=== PATIENT | male | born 1995 | race Caucasian/White ===

== ENCOUNTER 2024-03-24 22:16 | Emergency (ER) | payer BC, SELFPAY ==
[2024-03-24] VITALS (7 sets, daily range): BP systolic 91–103; BP diastolic 55–67; PULSE 87–94; RESP 16–28; TEMP 36.3; O2SAT 96–99
--- NOTE | ~2024-03-24 | CT_ITS ---
Clinical Indication: Chest pain, abdominal pain CT Scan of the Chest, Abdomen, and Pelvis with Contrast: Technique: Contiguous sections were acquired throughout the chest, abdomen, and pelvis after intraven ous administration of 100 cc of Omnipaque 350. Dose reduction technique was used on this scan by allyson clements automated exposure control and iterative reconstruction technique. The dose-length product (DL P) was 850.10 mGy-cm. Findings: There is no evidence of any significant mediastinal, hilar or axillary lymphadenopathy. The mediastin al soft tissues and vascular structures appear normal. There is no evidence of pleural or pericardial effusion. There is focal scarring or atelectasis at the right middle lobe and right lower lobe, as well as the left lung base. The liver, spleen, pancreas, gallbladder, adrenals and kidneys are within normal limits. No evidence of aortic aneurysm. No lymphadenopathy. There is mild diffuse large bowel wall thickening. No bowel obstruction. No abscess or free air. Urinary bladder is unremarkable. No pelvic mass seen. No ascites. Impression: Pancolitis. Consider ulcerative colitis or other infectious/inflammatory colitis. Focal bibasilar pulmonary scarring or atelectasis. Reviewed, dictated and finalized at [facility]. Impression: Pancolitis. Consider ulcerative colitis or other infectious/inflammatory coliti s. Focal bibasilar pulmonary scarring or atelectasis.
--- NOTE | ~2024-03-24 | XR_ITS ---
Portable chest x-ray Comparison: None Clinical History: Chest pain Findings: Lungs are clear, without focal consolidation or pleural effusion. Cardiomediastinal silho uette is unremarkable. Bones and soft tissues are unremarkable. Impression: Normal chest. Reviewed, dictated and finalized at location . Impression: Normal chest.
--- NOTE | 2024-03-24 22:31 | ECG_ITS ---
Test Date: 2024-03-24 22:32:41 Measurements Intervals [place] Rate: 86 P: 48 RI: 164 QRS: 80 QRSD: 106 T: 26 QT: 348 QTc: 418 Interpretive Statements SINUS RHYTHM NORMAL ELECTROCARDIOGRAM No previous ECG available for comparison Electronically Signed On 03-25-2024 09:13:11 CDT by Abel Reynolds M.D.
--- NOTE | 2024-03-24 23:01 | ED.ABDPAIN ---
HPI - Abdominal Pain General Chief Complaint: Abdominal Pain Stated Complaint: abd pain Source: patient Mode of arrival: ambulatory Limitations: no limitations History of Present Illness HPI narrative: 29-year-old male with no significant past medical history presents to the ED with -- epigastric/ upper abdominal pain with fever and diarrhea which started on Tuesday and lasted for a day with improvement in symptoms. He had of recurrence of upper abdominal pain and diarrhea . -- new substernal pain which started today. no fever or chills. No cough or sputum production. No shortness of breath. -- dizziness Patient has not eaten anything out of the ordinary. Nonsmoker. Occasional alcohol use. MD elicited complaint: abdominal pain Onset (ago): day(s) ( Four days) Pain Consistency: intermittent Location: epigastric Pain scale (0-10): 6 Quality: aching Radiation: none Migration to: no migration Exacerbating factors: nothing Relieving factors: nothing Associated symptoms: diarrhea Related Data Home Medications Medication Instructions Recorded Confirmed No Home Medications 03/24/24 03/24/24 Allergies Allergy/AdvReac Type Severity Reaction Status Date / Time No Known Allergies Allergy Verified 03/24/24 22:18 Review of Systems Review of Systems: All systems reviewed & are unremarkable except as noted in HPI and below Constitutional: Constitutional: Reports as per HPI and Reports no additional constitutional complaints Eyes: Eyes: Reports as per HPI and Reports no additional eye complaints ENT: Reports system reviewed and no additional complaints, except as documented and Reports as per HPI Cardiovascular: Cardiovascular: Reports as per HPI, Reports no additional cardiovascular complaints and Reports chest pain Comments: substernal chest pain Respiratory: Respiratory: Reports as per HPI and Reports no additional respiratory complaints Gastrointestinal: Gastrointestinal: Reports as per HPI, Reports no additional gastrointestinal complaints and Reports diarrhea Genitourinary: Genitourinary: Reports no additional male genitourinary complaints Musculoskeletal: Musculoskeletal: Reports no additional musculoskeletal complaints and Reports as per HPI Integumentary/Breasts: Skin/Breast: Reports system reviewed and no additional complaints, except as docu and Reports as per HPI Neurologic: Reports system reviewed and no additional complaints, except as documented and Reports as per HPI Psychiatric: Psychiatric: Reports no additional psychiatric complaints and Reports as per HPI Endocrine: Endocrine: Reports no additional endocrine complaints and Reports as per HPI Hematologic/Lymphatic: Hematologic/Lymphatic: Reports no additional hematologic/lymphatic complaints and Reports as per HPI Allergic/Immunologic: Allergic/Immunologic: Reports no additional allergic/immunologic complaints and Reports as per HPI Exam Narrative: blood pressure 103/59. Afebrile. Const: General: no acute distress Orientation/consciousness: patient oriented x3 Limitations: no limitations HENMT: Head: normal to inspection Ears: external ears normal Face/Nose/Sinus: Normal external nose present Face and sinus: normal facial exam Mouth: Yes Normal oral and palatal mucosa present Throat: posterior oropharynx normal Eyes: Conjunctivae: conjunctivae normal Pupils: Equal, round and reactive pupils present EOM: EOMs intact bilaterally Direct Ophthalmoscopy: no photophobia Neck: Neck: normal visual inspection, no lymphadenopathy and no meningeal signs Chest: Chest palpation & inspection: normal inspection of the chest Resp: Effort & Inspection: normal respiratory effort Auscultation: clear to auscultation bilaterally Cardio: Rate: regular rate Rhythm: regular rhythm GI: GI Palp: Yes Soft to palpation Other: Tenderness in right lower quadrant and left lower quadrant. : General: Yes no CVA tendernes
--- NOTE | 2024-03-24 23:03 | PC.NURSE ---
patient is resting on stretcher. call light in reach.
--- NOTE | 2024-03-24 23:10 | PC.NURSE ---
Dr Hutchinson at the bedside
[2024-03-24] MEDS: ONDANSETRON INJ 4 MG/2 ML VIAL IV PUSH (23:22)
[2024-03-24] MEDS: LACTATED RINGERS 1,000 ML 999 ML IV CONT (23:22)
[2024-03-24 23:29] LABS: Basophils Absolute Auto 0.02 K/mm3 (0.00-0.10); Basophils Percent Auto 0.4 % (0.0-1.0); Eosinophils Absolute Auto 0.04 K/mm3 (0.02-0.50); Eosinophils Percent Auto 0.7 % (1.0-6.0); Hematocrit 38.8 % (40.0-54.0); Hemoglobin 13.8 g/dL (14.0-18.0); Immature Granulocyte Absolute 0.01 K/mm3 (0.00-0.00); Immature Granulocyte Percent A 0.2 % (0.0-0.0); Lymphocytes Percent Auto 18.3 % (18.0-42.0); Mean Corpuscular HGB Conc 35.6 g/dL (32-36); Mean Corpuscular Hemoglobin 31.2 pg (27.0-31.0); Mean Corpuscular Volume 87.6 fL (78.0-102.0); Mean Platelet Volume 10.8 fl (8.7-11.0); Monocytes Percent Auto 14.7 % (2.0-11.0); Neutrophils Absolute Auto 3.58 K/mm3 (1.70-7.20); Neutrophils Percent Auto 65.7 % (50.0-70.0); Platelet Count Result 220 K/mm3 (150-420); Red Blood Count 4.43 M/mm3 (4.70-6.10); Red Cell Distribution Width 12.4 % (11.6-14.4); White Blood Count 5.5 K/mm3 (4.8-10.8)
[2024-03-24 23:40] LABS: Partial Thromboplastin Time 31.5 Sec (23.9-30.70)
[2024-03-24 23:41] LABS: Lactic Acid Reflex 0.8 mmol/L (0.4-2.0)
[2024-03-24 23:42] LABS: Alanine Aminotransferase 23 U/L (16-63); Albumin Level 3.4 g/dL (3.4-5.0); Alkaline Phosphatase 88 U/L (46-116); Anion Gap 9 mmol/L (4-12); Aspartate Amino Transferase 19 U/L (15-37); Bilirubin,Total 0.4 mg/dL (0.00-1.00); Blood Urea Nitrogen 14 mg/dL (7-18); Calcium 8.6 mg/dL (8.5-10.1); Carbon Dioxide 28 mmol/L (21-32); Chloride 100 mmol/L (98-108); Estimated CRCL calculation 78 ml/min; Estimated Glomerular Filt Rate > 60; Glucose 106 mg/dL (70-99); Lipase 16 U/L (16-77); Osmolality Calculated 284 mOsm/kg (285-295); Potassium 3.3 mmol/L (3.5-5.1); Sodium 137 mmol/L (136-145); Total Protein 7.3 g/dL (6.4-8.2)
[2024-03-24 23:50] LABS: Troponin I 1659.1 ng/L (0.00-60.4)
[2024-03-25] VITALS (24 sets, daily range): BP systolic 87–106; BP diastolic 56–77; PULSE 68–90; RESP 17–23; O2SAT 95–99
[2024-03-25 00:07] LABS: Add Urine Microscopic? NO; Appearance Urine Clear (Clear); Bilirubin Urine Negative (Negative); Blood Urine Negative (Negative); Color Urine Yellow (Yellow); Glucose Urine UA Negative (Negative); Ketones Urine Negative (Negative); Leukocyte Esterase Ur Negative LEU/UL (Negative); Nitrate Urine Negative (Negative); Protein Urine Negative (Negative); Specific Grav Ur >= 1.030 (1.010-1.020); Urobilinogen Urine 0.2 mg/dL (0.2-1.0)
--- NOTE | 2024-03-25 00:09 | PC.NURSE ---
RN advised me to call who is sitting in parking lot, has 3 kids and assured her it was okay for them to come in
[2024-03-25] MEDS: HEPARIN SOD/D5W 100 UNITS/ML 25,000 UNITS/250 ML BAG 10 UNITS IV CONT (00:11)
[2024-03-25] MEDS: HEPARIN SODIUM 5,000 UNITS/ML VIAL 4000 UNITS IV PUSH (00:13)
[2024-03-25] MEDS: ASPIRIN 81 MG CHEWABLE TABLET 324 MG PO (00:14)
--- NOTE | 2024-03-25 00:18 | PC.NURSE ---
proc tech called about confusion over PT/INR that was ordered for 23:53, checked w/ Jasper, said it was a mistake order & he just wants a redrawn trop once pt gets back from ct scan
--- NOTE | 2024-03-25 00:30 | PC.NURSE ---
patient transported to ct via wheel chair. dr jean baptiste talking with m transfer line
--- NOTE | 2024-03-25 00:45 | ECG_ITS ---
Test Date: 2024-03-25 00:55:58 Measurements Intervals [place] Rate: 84 P: 50 GA: 173 QRS: 81 QRSD: 105 T: 33 QT: 349 QTc: 415 Interpretive Statements SINUS RHYTHM NORMAL ELECTROCARDIOGRAM Compared to ECG 03/24/2024 22:32:41 No significant changes Electronically Signed On 03-25-2024 09:14:34 CDT by Abel Reynolds M.D.
[2024-03-25] MEDS: LACTATED RINGERS 1,000 ML 999 ML IV CONT (01:06)
[2024-03-25] MEDS: PIPERACILLN/TAZ 3.375GM/NS50ML 3.375 GM/50 ML BAG IVPB (01:40)
--- NOTE | 2024-03-25 01:57 | PC.NURSE ---
called [facility] for RN for transfer of pt
[2024-03-25] MEDS: MORPHINE SULFATE (*CRX) 2 MG/ML INJ 1 MG IV PUSH (02:06)
--- NOTE | 2024-03-25 03:01 | PC.NURSE ---
called [facility] access line for RN, spoke to Lisa, said waitlist for [facility] but calling house sup at [facility]
--- NOTE | 2024-03-25 03:34 | PC.NURSE ---
patient got up to use bedside commode. reports that he does not want the pain medication at this time. patient back on stretcher with call light in reach. warm blanket was given
[2024-03-25] MEDS: SODIUM CHLORIDE 0.9% IV 1,000 ML 999 ML IV CONT (04:10)
--- NOTE | 2024-03-25 04:28 | PC.NURSE ---
report called to Marija RONQUILLO at [facility]
--- NOTE | 2024-03-25 05:04 | PC.NURSE ---
[facility] called told them pt is being transported to [place]
== END 2024-03-25 05:11 | disposition short-term general hospital (02) ==
PROVIDERS: Emergency Provider Internal Medicine Critical Care Medicine
DX: I21.4 Non-ST elevation (NSTEMI) myocardial infarction (principal); K52.9 Noninfective gastroenteritis and colitis, unspecified
CPT/HCPCS: 36415; 71045; 71260; 74177; 80053; 81003; 83605; 83690; 84484; 85025; 85730; 93005; 96361; 96365; 96366; 96367; 96375; 99285; A9270; J1644; J2270; J2405; J2543; J7030; J7120; Q9967

== ENCOUNTER 2024-03-25 05:44 | Inpatient (IN) | payer BC, SELFPAY ==
[2024-03-25] VITALS (13 sets, daily range): BP systolic 83–104; BP diastolic 56–71; PULSE 57–88; RESP 12–29; TEMP 36.7–37.2; O2SAT 93–100; BMI 28.0
--- NOTE | 2024-03-25 06:06 | PM.IMHP ---
H&P: HPI History of Present Illness Date/Time: 03/25/24 06:06 Chief Complaint: Chest pain Narrative: 29-year-old male from [place] with past medical history of diet-controlled hyperlipidemia and being overweight who presented to the ER at [facility] due to chest pain. Patient reports his symptoms actually started on the . He developed abdominal cramping and watery stools several times a day. He had some associated cramping with his diarrheal episodes and some periumbilical and lower abdominal pain. He had to leave work due to feeling ill. The next day felt slightly better but after returning home that day the pain worsened. On he developed a fever up to 101. He had increased number of bowel movements. He denied any mucousy stools, bloody stools or melena. He felt on Tuesday after taking Imodium the day before. So they proceeded with her trip down here to our area for a moravian. However when they arrived to the hotel he began having a increased abdominal cramping. His abdominal pain was an 8/10 in intensity. Shortly thereafter he developed sudden substernal chest pain with associated pressure in his throat Achilles neck was tight. He did not have any associated nausea or vomiting. He had not had any heartburn symptoms prior to this. He denied any difficulty swallowing. The chest pain started around 930 or 10:00 o'clock and persisted until he route arrived at the outside ER around 10:30 or 11. He received full-dose aspirin at the outside ER He denies any known history of heart disease but was diagnosed with hyperlipidemia last year that improved with weight loss. He has intentionally lost 20 lb this year. He does have a significant family history of premature coronary disease in both his father and grandfather who both in their 50s but they were both smokers. His troponins does have side ER were found to be elevated 1659 and 3659. His initial EKG did demonstrate nonspecific changes in lead 3 and T-wave inversions in V1. Repeat EKG demonstrated resolution of changes in lead 3 and improvement in changes in V1. He reports that his chest pain was improved after receiving 1 mg of morphine. However his pain did return. Nitroglycerin was ordered but patient did not receive it due to hypotension. When patient had arrived to the outside facility initially his blood pressures were normal but he did develop hypotension after midnight. His blood pressures for the most part at that time remained in the 80s. He did receive 2 L of IV fluids. CT scan of the abdomen did demonstrate colitis. Patient received 1 dose of Zosyn. Given his significant elevation in troponin he was started on the heparin drip. Transfer was arranged to our facility. I requested patient receive 1/3 L of IV fluids which he received prior to arriving at our facility. His blood pressures were still slightly low but systolic pressures were greater than 90 and maps were in the 65-70 range. She does evaluation was performed which demonstrated patient was fluid responsive with a 30% differential. An additional 4 L fluid was ordered. Patient reports persistent abdominal pain. He still reports some substernal chest pressure. His pain is not per reproducible. His repeat troponin on arrival to our facility was 7.2. He denies any upper respiratory symptoms, cough, congestion. He does report that his middle of his chest feels as if he may have strained some muscles but he does not have any reproducible pain to palpation. He denies any increased chest discomfort with respiratory motion The patient is did go camping but 8 weeks ago in [place]. The patient's also reports that they raised her own chickens for consumption. They recently slot heard some other check ins for the season. She is concerned that the diarrhea may be due to contamination. No one else on the strip has become ill. He denies any history of antibiotic use. Review of Systems Re
--- NOTE | 2024-03-25 06:13 | ADMGEN ---
This patient, Bud Morales, was admitted to Intensive Care Unit-1. Patient/family oriented to hospital policies and general routines including ID bracelet, bed and alarms, visiting hours, pain management, procedures, bathroom and other care routines, personal items, smoking policy, room service/diet, and visiting hours. Information on how to activate the Rapid Response Team has been discussed. Patient/Family are encouraged to report perceived risks to care and to ask questions if they do not understand what they are told or what they should do.
[2024-03-25] MEDS: HEPARIN SOD/D5W 100 UNITS/ML 25,000 UNITS/250 ML BAG 10 UNITS IV CONT (06:20)
[2024-03-25 06:32] LABS: Alanine Aminotransferase 25 U/L (6-50); Albumin Level 4.1 g/dL (3.5-5.1); Alkaline Phosphatase 89 U/L (38-126); Anion Gap 10 mmol/L (4-12); Aspartate Amino Transferase 37 U/L (17-59); Bilirubin,Total 0.6 mg/dL (0.2-1.3); Blood Urea Nitrogen 11 mg/dL (9-20); Calcium 8.6 mg/dL (8.4-10.2); Carbon Dioxide 24 mmol/L (22-30); Chloride 103 mmol/L (98-107); Cholesterol 166 mg/dL (0-200); Estimated CRCL calculation 89 ml/min; Estimated Glomerular Filt Rate > 60; Glucose 98 mg/dL (65-110); HDL Direct 35 mg/dL; Potassium 3.6 mmol/L (3.4-5.0); Sodium 137 mmol/L (137-145); Triglycerides 165 mg/dL (<150)
[2024-03-25 06:34] LABS: Prothrombin Time 13.6 Seconds (11.1-14.7)
[2024-03-25 06:35] LABS: Partial Thromboplastin Time 39.1 Seconds (22.3-36.8)
[2024-03-25 06:36] LABS: Basophils Percent Auto 0.8 % (0.2-1.2); Eosinophils Percent Auto 0.8 % (0-4.4); Hematocrit 39.6 % (42.0-52.0); Hemoglobin 13.3 g/dL (14.0-18.0); Immature Granulocyte Absolute 0.02 K/mm3 (0.00-0.031); Immature Granulocyte Percent A 0.4 % (0-0.5); Lymphocytes Percent Auto 18.9 % (18.3-44.2); Mean Corpuscular HGB Conc 33.6 g/dl (32-36); Mean Corpuscular Hemoglobin 30.8 pg (26-34); Mean Corpuscular Volume 91.7 fl (80-100); Mean Platelet Volume 10.5 fl (7.4-10.4); Monocytes Absolute Auto 0.9 K/mm3 (0.1-0.6); Monocytes Percent Auto 17.2 % (2.6-8.5); Neutrophils Absolute Auto 3.3 K/mm3 (1.3-6.7); Neutrophils Percent Auto 61.9 % (45.5-73.1); Platelet Count Result 178 k/mm3 (150-375); Red Blood Count 4.32 M/mm3 (4.6-6.20); Red Cell Distribution Width 12.6 % (11.5-14.5); White Blood Count 5.3 K/mm3 (4.5-10.0)
--- NOTE | 2024-03-25 06:40 | ECG_ITS ---
Test Date: 2024-03-25 06:55:05 Measurements Intervals [place] Rate: 85 P: 47 LA: 161 QRS: 78 QRSD: 104 T: 25 QT: 332 QTc: 395 Interpretive Statements SINUS RHYTHM NORMAL ELECTROCARDIOGRAM INTERPRETATION BASED ON A DEFAULT AGE OF 40 YEARS Compared to ECG 03/25/2024 00:55:58 No significant changes Electronically Signed On 03-25-2024 09:07:03 CDT by Abel Reynolds M.D.
[2024-03-25 06:43] LABS: LDL Cholesterol Direct 91 mg/dL
[2024-03-25] MEDS: HEPARIN SODIUM 5,000 UNITS/ML VIAL 4000 UNITS IV PUSH (06:44)
[2024-03-25] MEDS: SODIUM CHLORIDE 0.9% IV 1,000 ML 999 ML IV CONT ×2 (06:51→16:49)
[2024-03-25] MEDS: KCL 20 MEQ/D5/0.45% SOD CHL 1,000 ML 100 ML IV CONT (06:52)
[2024-03-25] MEDS: ASPIRIN 81 MG CHEWABLE TABLET PO (09:14)
[2024-03-25] MEDS: ATORVASTATIN 40 MG TABLET PO (09:14)
[2024-03-25] MEDS: PIPERACILLN/TAZ 3.375GM/NS50ML 3.375 GM/50 ML BAG IVPB ×3 (09:20→20:34)
--- NOTE | 2024-03-25 10:14 | PM.CNCAR ---
Assessment and Plan Assessment and plan (1) Pancolitis: Code(s): K51.00 - Ulcerative (chronic) pancolitis without complications Status: Acute (2) Troponin I above reference range: Code(s): R79.89 - Other specified abnormal findings of blood chemistry Status: Acute Plan This is a 29-year-old man who presents with primarily what sounds like a viral gastroenteritis he had a fever and some diarrhea for 7-10 days before coming into the hospital. He now is having episodes of some chest pain as well as the abdominal discomfort and his troponin levels are significantly elevated. His electrocardiograms are completely unremarkable and other than the family history he has no significant risk factors for premature coronary artery disease. Having said this ACS is certainly in the differential diagnosis. At this point my recommendation is to proceed with left heart catheterization. Has his hemodynamics, vital signs are stable he is not really in any significant pain any longer and this is not an emergency and can be scheduled for a tomorrow morning. Assuming that his angiograms are normal the more likely diagnosis is viral myocarditis is part of the entire illness that he is experiencing at this time. Thank you for asking me to see this nice gentleman in consultation Abel Reynolds MD [facility] History of Present Illness History of Present Illness Consult date/time: 03/25/24 10:14 Reason For Visit: nstemi,colitis Narrative: This is a very pleasant 29-year-old man I am seeing at the request of the hospitalist because of chest pain and elevated troponin levels. He is unknown to doctors in this area as he lives in [place] and is visiting this area for a family event. He became unwell about 10 days before this admission with an illness marked by abdominal discomfort fever and diarrhea. At times with the abdominal discomfort he had also would have some pain radiating up into the chest he was feeling unwell in this regard yesterday and went to the emergency room [facility] where he was evaluated. Cardiac moctezuma his electrocardiograms are completely normal. His troponin levels however were significantly elevated and are downtrending. As a result of this he was placed on a heparin drip and transferred [facility] for further evaluation. The patient prior to this illness has no cardiac symptoms such as exertional chest pain shortness of breath palpitations orthopnea PND or edema. He has no other significant medical problems. 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 He does not smoke he does have a family history of premature coronary disease in his father and his maternal grandfather. He says the both of those gentleman where heavy cigarette smokers. Review of Systems Constitutional: Constitutional: Reports no additional constitutional complaints Eyes: Eyes: Reports no additional eye complaints ENT: Reports system reviewed and no additional complaints, except as documented Cardiovascular: Cardiovascular: Reports as per HPI Respiratory: Respiratory: Reports no additional respiratory complaints Gastrointestinal: Gastrointestinal: Reports as per HPI Genitourinary: Genitourinary: Reports no additional male genitourinary complaints Musculoskeletal: Musculoskeletal: Reports no additional musculoskeletal complaints Integumentary/Breasts: Skin/Breast: Reports system reviewed and no additional complaints, except as docu Neurologic: Reports system reviewed and no additional complaints, except as documented Endocrine: Endocrine: Reports no additional endocrine complaints Hematologic/Lymphatic: Hematologic/Lymphatic: Reports no additional hematologic/lymphatic complaints Allergic/Immunologic: Allergic/Immunologic: Reports no additional allergic/immunologic complaints [facility] Past Medical History Medical History (Updated 03/25/24 @ 11:02 by Abel Paniagua
[2024-03-25 11:17] LABS: IFOB Positive Control Positive; Immunochemical Fecal Occult Bl Positive (N)
[2024-03-25 11:36] LABS: Influenza A QL RT-PCR Negative (Negative); Influenza B QL RT-PCR Negative (Negative); RSV RNA, RT-PCR Negative (Negative); SARS-CoV-2 RNA PCR Negative (Negative)
--- NOTE | 2024-03-25 11:36 | PM.IMPN ---
Progress Note: A&P Assessment and Plan (1) Non-ST elevated myocardial infarction (non-STEMI): Code(s): I21.4 - Non-ST elevation (NSTEMI) myocardial infarction Status: Acute Assessment and Plan: Patient developed chest pain and has risk factors for early coronary disease with HLD and family hx. Troponin elevated to 7.22. EKG essentially normal with no change on repeat EKGs. Consider ACS without EKG changes or possibly myocarditis from viral infection. Pericarditis less likely by EKG but does have mild positional chest symptoms. There may be a component of demand ischemia given the patient's HoTN Heparin drip started. Cardiology was consulted with plans for LHC in the morning. Echo ordered. Patient received a full-dose aspirin at the outside hospital and will continue 81 mg aspirin here. Lipid panel noted. Add Lipitor. (2) Pancolitis: Code(s): K51.00 - Ulcerative (chronic) pancolitis without complications Status: Acute Assessment and Plan: The patient with diarrhea. CT scan showing pancolitis. Possibly acute onset infectious colitis but was having mild intermittent bowel symptoms. No hx of hematochezia. CDiff toxin negative. Stool studies sent. WBC normal. He was started on empiric antibiotic therapy with Zosyn. Monitor stool output. Guaiac positive stools but not unexpected given the colitis. Continue Heparin drip for now and follow HH. (3) Hypotension due to hypovolemia: Code(s): E86.1 - Hypovolemia Status: Acute Assessment and Plan: The patient's cheetah score did demonstrate fluid responsive state with persistent borderline hypotension. Hypotension likely due to hypovolemia/dehydration. He has received fluid boluses and currently on Maintenance fluids He had mild hypokalemia at the outside facility but this is already resolved. Stop maintenance fluids and change to NS after NS bolus for SBP 80's Will monitor BP closely (4) Hyperlipidemia: Code(s): E78.5 - Hyperlipidemia, unspecified Status: Acute Assessment and Plan: Hx of diet controlled HLD TC 166, TG 165, LDL 91 and HDL 35 Lipitor added Plan DVT prophylaxis - heparin Code status - full Subjective Date/time seen: 03/25/24 11:36 Interval history: 29yo male with untreated HLD here for chest pain, fever and diarrhea. No recent abx. No furthre chest pain but mils 'ache' in the chest. Has HLD and family hx of early CAD (MGF and father both at age 55 of [place]). No mouth lesions. No rashes. Never had a colonoscopy. Has been having bowel symptoms with occasional diarrhea off/on for the past few months. Slight abd pain now. Still having watery stools that are 'rust' colored which is new. No melana or hematochezia past few months. Exam Narrative: AF 98.9 97/66 81 22 99% ra Gen - NARD Chest - CTA bilaterally, nml RR CV - RRR S1/S2. Tele showing no significant dysrhythmias Abd - Soft, minimal tenderness lower midline area. No guarding. +BS. Ext - No pedal edema. 2+ DP bilaterally Neuro - Alert and oriented. Nonfocal exam. Psych - Nml mood and affect Skin - Warm and dry Objective Data Vital Signs Vital Signs: Vital Signs - 24 hr 03/25/24 06:26 03/25/24 06:01 03/25/24 06:13 Temperature 98.7 F Pulse Rate 87 88 Respiratory Rate 19 24 H Blood Pressure 101/68 104/71 Pulse Oximetry 97 100 Oxygen Delivery Room Air 03/25/24 06:15 03/25/24 06:31 03/25/24 08:00 Temperature Pulse Rate 87 87 Respiratory Rate 17 29 H Blood Pressure 102/70 96/70 L Pulse Oximetry 99 98 98 Oxygen Delivery Room Air 03/25/24 08:00 03/25/24 08:00 03/25/24 10:00 Temperature 98.9 F Pulse Rate 79 80 81 Respiratory Rate 22 H Blood Pressure 97/66 L Pulse Oximetry 99 Oxygen Delivery Intake/Output Intake/Output: Intake & Output 03/22/24 03/23/24 03/24/24 03/25/24 23:59 23:59 23:59 23:59 Intake Total 114 Output Total 70
[2024-03-25 11:51] LABS: Toxigenic C. Diff NEGATIVE (NEGATIVE)
[2024-03-25 12:29] LABS: Hematocrit 34.3 % (42.0-52.0); Hemoglobin 11.5 g/dL (14.0-18.0)
[2024-03-25] MEDS: SODIUM CHLORIDE 0.9% IV 1,000 ML 125 ML IV CONT ×2 (12:29→20:35)
[2024-03-25] MEDS: SODIUM CHLORIDE 0.9% IV 500 ML IV CONT (12:29)
[2024-03-25] MEDS: HEPARIN SOD/D5W 100 UNITS/ML 25,000 UNITS/250 ML BAG 13 UNITS IV CONT (16:50)
[2024-03-25 18:35] LABS: Hematocrit 37.3 % (42.0-52.0); Hemoglobin 11.8 g/dL (14.0-18.0)
[2024-03-25 18:43] LABS: Partial Thromboplastin Time 70.1 Seconds (22.3-36.8)
[2024-03-26] VITALS (17 sets, daily range): BP systolic 98–115; BP diastolic 62–89; PULSE 48–88; RESP 12–26; TEMP 36.2–36.9; O2SAT 92–98
--- NOTE | 2024-03-26 | ECHO_ITS ---
Patient Info Name: Bud Morales Age: 29 years : 1995 Gender: Male Ht: 70 in Wt: 195 lbs BSA: 2.11 m2 HR: 57 bpm BP: 110 / 62 mmHg Heart Rhythm: Sinus Rhythm Technical Quality: Good Exam Date: 03/26/2024 8:01 AM Exam Location: Echo Lab Patient Status: Inpatient Admit Date: 03/25/2024 Staff Ordering Physician: Karla Saenz DO Supervisor [employer]: Alisa Gan RDCS Attending Provider: Karla Saenz DO Referring Physician: Letty MORTON; Exam Type: CA echo doppler color flow Study Info Indications - elevated troponin, hypotension Complete two-dimensional, color flow and Doppler transthoracic echocardiogram is performed. Summary 1. Complete two-dimensional, color flow and Doppler transthoracic echocardiogram is performed. Left Ventricular Outflow Tract Name Value Normal LVOT 2D LVOT Diameter 2.0 cm LVOT Doppler LVOT Peak Gradient 2 mmHg LVOT Mean Gradient 1 mmHg LVOT VTI 15 cm LVOT VTI/AV VTI Ratio 0.7 LVOT Stroke Volume 51 ml LVOT CO 2.4 l/min LVOT CI 1.1 l/min/m2 Pulmonic Valve Name Value Normal RVOT Doppler RVOT Peak Gradient 2 mmHg PV Doppler PV Peak Gradient 4 mmHg Mitral Valve Name Value Normal MV Doppler MV Decel Wright 145 cm/s2 MV PHT 130 ms MV Area (PHT) 1.7 cm2 4.0-5.0 MV Diastolic Function MV E Peak Velocity 65 cm/s MV A Peak Velocity 34 cm/s MV E/A 1.9 MV Decel Time 450 ms MV Annular TDI MV E/e' (Septal) 4.7 <=8.0 MV E/e' (Lateral) 4.2 <=8.0 MV E/e' (Average) 4.4 Tricuspid Valve Name Value Normal TV Regurgitation Doppler TR Peak Velocity 252 cm/s TR Peak Gradient 25 mmHg Estimated PAP/RSVP
[2024-03-26 01:03] LABS: Hematocrit 29.7 % (42.0-52.0); Hemoglobin 9.9 g/dL (14.0-18.0)
[2024-03-26] MEDS: PIPERACILLN/TAZ 3.375GM/NS50ML 3.375 GM/50 ML BAG IVPB (02:56)
[2024-03-26 06:49] LABS: Basophils Percent Auto 0.3 % (0.2-1.2); Eosinophils Absolute Auto 0.1 K/mm3 (0-0.3); Eosinophils Percent Auto 1.4 % (0-4.4); Hematocrit 32.9 % (42.0-52.0); Immature Granulocyte Absolute 0.01 K/mm3 (0.00-0.031); Immature Granulocyte Percent A 0.3 % (0-0.5); Lymphocytes Absolute Auto 1.26 K/mm3 (0.9-3.2); Lymphocytes Percent Auto 34.2 % (18.3-44.2); Mean Corpuscular HGB Conc 33.4 g/dl (32-36); Mean Corpuscular Hemoglobin 30.4 pg (26-34); Mean Corpuscular Volume 90.9 fl (80-100); Mean Platelet Volume 10.4 fl (7.4-10.4); Monocytes Absolute Auto 0.6 K/mm3 (0.1-0.6); Monocytes Percent Auto 15.5 % (2.6-8.5); Neutrophils Absolute Auto 1.8 K/mm3 (1.3-6.7); Neutrophils Percent Auto 48.3 % (45.5-73.1); Platelet Count Result 162 k/mm3 (150-375); Red Blood Count 3.62 M/mm3 (4.6-6.20); Red Cell Distribution Width 12.9 % (11.5-14.5); White Blood Count 3.7 K/mm3 (4.5-10.0)
[2024-03-26 06:59] LABS: Alanine Aminotransferase 52 U/L (6-50); Albumin Level 3.2 g/dL (3.5-5.1); Alkaline Phosphatase 80 U/L (38-126); Anion Gap 8 mmol/L (4-12); Aspartate Amino Transferase 42 U/L (17-59); Bilirubin,Total 0.4 mg/dL (0.2-1.3); Blood Urea Nitrogen 5 mg/dL (9-20); Calcium 8.2 mg/dL (8.4-10.2); Carbon Dioxide 22 mmol/L (22-30); Chloride 110 mmol/L (98-107); Estimated CRCL calculation 89 ml/min; Estimated Glomerular Filt Rate > 60; Glucose 110 mg/dL (65-110); Potassium 3.4 mmol/L (3.4-5.0); Sodium 140 mmol/L (137-145)
[2024-03-26 07:02] LABS: Partial Thromboplastin Time 84.6 Seconds (22.3-36.8)
[2024-03-26] MEDS: SODIUM CHLORIDE 0.9% IV 1,000 ML 125 ML IV CONT ×2 (07:28→11:33)
[2024-03-26] MEDS: ASPIRIN 81 MG CHEWABLE TABLET PO (08:30)
--- NOTE | 2024-03-26 09:03 | PC.NURSE ---
Patient left for labor standards director.
--- NOTE | 2024-03-26 09:05 | WPDMODSED ---
Moderate Sedation Note-Pt Data Patient Data Diagnosis: Abdominal discomfort, diarrhea, chest pain, elevated troponin Present Complaint: no complaints this morning Procedure to be performed/Plan: left heart catheterization Allergies Allergy/AdvReac Type Severity Reaction Status Date / Time No Known Allergies Allergy Verified 03/24/24 22:18 Home Medications Medication Instructions Recorded Confirmed Type No Home Medications 03/24/24 03/25/24 History Current Medications: Active Medications Acetaminophen (Acetaminophen 325 Mg Tablet) 650 mg PO Q4H PRN PRN Reason: Mild Pain (1-3) or Fever Hydrocodone Bitart/Acetaminophen (Hydrocodone/Acetaminophen (*Crx) 5-325 Mg Tablet) 1 tab PO Q4H PRN PRN Reason: Moderate Pain (4-6) Aspirin (Aspirin 81 Mg Chewable Tablet) 81 mg PO DAILY@0800 [facility] Last Admin: 03/26/24 08:30 Dose: 81 mg Atorvastatin Calcium (Atorvastatin 40 Mg Tablet) 40 mg PO DAILY [facility] Last Admin: 03/25/24 09:14 Dose: 40 mg Piperacillin/Tazobactam/Dextrose (Zosyn 3.375 Gm/Ns 50 Ml) 3.375 gm in 50 mls @ 100 mls/hr IVPB Q6H [facility] Last Infusion: 03/26/24 03:26 Dose: Infused Sodium Chloride (Normal Saline Iv) 1,000 mls @ 70 mls/hr IV CONT .[id number] [facility] Last Admin: 03/26/24 07:28 Dose: 125 mls/hr Morphine Sulfate (Morphine Sulfate (*Crx) 2 Mg/Ml Inj) 2 mg IV PUSH Q4H PRN PRN Reason: Pain Rated 7-10 Naloxone HCl (Naloxone Hcl 0.4 Mg/Ml Vial) 0.1 mg IV PUSH Q2M PRN PRN Reason: Opiate Reversal Ondansetron HCl (Ondansetron Inj 4 Mg/2 Ml Vial) 4 mg IV PUSH Q6H PRN PRN Reason: Nausea And Vomiting Perflutren Lipid Microsphere (Perflutren Lipid Microspheres 1.5 Ml Vial Diluted To 10 Ml Total Volume) 0 ml IV PUSH ONCE PRN; Protocol PRN Reason: adequate visualization Stop: 03/28/24 08:01 Sedation/Anesthesia: No previous sedation/anesthesia problems (including family history). [facility] Past Medical History Medical History (Updated 03/26/24 @ 00:00 by Background Daemon) Hyperlipidemia Overweight (BMI 25.0-29.9) Surgical History Surgical History (Updated 03/25/24 @ 08:17 by Karla Saenz DO) History of circumcision Family History Family History Grandparent Diabetes mellitus Acute myocardial infarction Father Acute myocardial infarction Social History Social History (Updated 03/25/24 @ 08:19 by Karla Saenz DO) Social History: The patient and his live in [place] and are in the area for a family event. They have been for 10 years. They have 3 children ages 5 3 and 1-year-old. 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 He used to drink about 2 alcoholic beverages most days but over the last year has cut down to only drinking 2 alcoholic beverages a week. He denies any illicit substance use. He does not smoke. Code status: Full code Surrogate decision maker: Smoking status: Never smoker Alcohol intake: current Drinks per week: 1 Substance use: never Substance use type: does not use Do You Feel Safe in your Home?: Yes Lack of Transportation: No Lack of Food: Never True Current Housing: I Have Housing Concerned About Future Housing: No Difficulty Paying Gas/Electric Bills: No Difficulty Paying for Meds: No Currently Unemployed: No Education: Bachelor's Degree Difficulty w/ Childcare or Family Care: No Living arrangements: with family Spiritual care concerns: No Mod Sed Physical Exam Physical Exam Pre Procedural Exam: Normal: Appearance, Neck, Throat, Airway, Lungs, Heart Size, Heart Rate, Heart Rhythm and Extremities Hours since solid foods: 12 Hours since liquid intake: 12 Mallampati Classification: class II Internal Medicine - PN: Obj Da Vital Signs Vital Signs: Vital Signs - 24 hr 03/25/24 10:00 03/25/24 12:00 03/25/24 12:00 Temperature 36.7 C Pulse Rate 81 79 69 Respiratory Rate 16 Blood Pressure 85/57 L Pulse Oximetr
--- NOTE | 2024-03-26 09:41 | P.PCNCC_ITS ---
Cardiac Cath Procedure Note Date of procedure:: 03/26/24 Performing physician:: Abel Reynolds MD Indication:: chest pain elevated troponin recent febrile illness with abdominal discomfort and diarrhea Brief clinical history:: this is a 29-year-old man without prior medical problems who enters the hospital for cardiac evaluation because of elevated troponin and chest pain. He has been ill for about 7-10 days with abdominal discomfort, diarrhea and fever. Troponin was sampled at a referring hospital was elevated. No history of cardiac problems or anginal-type symptoms previously Procedure Procedure performed:: left ventriculogram coronary angiogram Angio-Seal to right femoral artery Sedation/Medication given:: fentanyl 50 mg Versed 2 mg case start time 9:20 a.m. case end time 9:35 a.m. sedation provided by Christy Tee RN, trained observer Access site:: right femoral artery Estimated blood loss:: minimal Procedure note:: patient was brought to the cardiac catheterization lab where the right femoral triangle was prepared and draped in the usual fashion. Anesthesia was provided with 1% lidocaine infiltrated locally. Using the modified Seldinger technique the right femoral artery was punctured and a 5 Beninese vascular sheath was placed. Following this left heart catheterization was carried out. I used a 5 Beninese angled pigtail catheter to measure left-sided hemodynamics and to inject left ventriculography in the 30 degree GARSIA projection. Following this I used standard 5 Beninese FL4 and JR4 catheters to engage inject the left and right coronary arteries respectively. The cineangiograms were then reviewed and the case was terminated. An angiogram was performed of the femoral artery through the sheath after which an Angio-Seal device was deployed with good hemostatic result. 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 Findings:: Hemodynamics: Central aortic pressure is 98 over 58 left ventricle 98/5 end-diastolic 22 there is no gradient on pullback across the aortic valve. Left ventricle: The left ventricle is normal in size there is very mild global hypokinesia identified with an ejection fraction of 40-45%. The left main coronary artery is widely patent the left anterior descending is a medium caliber artery extending down to the apex the LAD and its branches are angiographically normal the circumflex is a medium caliber artery giving rise to the marginal branches the circumflex system is angiographically normal the right coronary artery is large in caliber and is dominant to the posterior circulation the RCA the PDA and the PL branches are angiographically normal Conclusion:: 1. right coronary dominant circulation with no evidence of coronary disease 2. mild global left ventricular systolic dysfunction with ejection fraction 40-45% and LV EDP of [address] [facility]
--- NOTE | 2024-03-26 11:00 | SUR.PHASEII ---
CARDIAC PROCEDURE DISK GIVEN TO PT'S ALONG WITH ANGIOSEAL PAMPHLET FOR KEEPING. REVIEWED DISCHARGE CARE OF R. GROIN PUNCTURE SITE W/ PT AND AT THIS TIME AND INSTRUCTED TO KEEP ANGIOSEAL CARD IN [place] FOR NEXT 90 DAYS. BOTH V/U.
--- NOTE | 2024-03-26 12:30 | PC.NURSE ---
Patient does not want to take Lipitor at this time and will check with his PCM if he needs to take this medication.
--- NOTE | 2024-03-26 14:45 | PC.NURSE ---
Patient does not wish to take any new medications such as Lipitor or the ARB discussed by Dr. Reynolds after cardiac cath this am. He would like a second opinion when he gets back home before taking any new medications. I notified Dr. Reynolds and left a message for Dr. Holliday. Patient waiting for Dr. Holliday to come see him.
--- NOTE | 2024-03-26 16:50 | PM.DS ---
DS: Admitting Diagnosis Discharge Date 03/26/24 Admitting Diagnosis Chest pain DS: Discharge Diagnosis Discharge Diagnosis (1) Myocarditis: Code(s): I51.4 - Myocarditis, unspecified Status: Acute (2) Non-ST elevated myocardial infarction (non-STEMI): Code(s): I21.4 - Non-ST elevation (NSTEMI) myocardial infarction Status: Inactive (3) Pancolitis: Code(s): K51.00 - Ulcerative (chronic) pancolitis without complications Status: Acute (4) Hypotension due to hypovolemia: Code(s): E86.1 - Hypovolemia Status: Acute (5) Hyperlipidemia: Code(s): E78.5 - Hyperlipidemia, unspecified Status: Acute DS: Summary Hospital Course Reason for hospitalization: 29yo male with untreated HLD here for chest pain, fever and diarrhea. Please see H&P for details. Hospital Course: Patient developed chest pain and has risk factors for early coronary disease with HLD and family hx. Troponin elevated to 7.22. EKG essentially normal with no change on repeat EKGs. TC 166, TG 165, LDL 91 and HDL 35. ASA and Lipitor added. There may be a component of demand ischemia given the patient's HoTN. The patient's cheetah score did demonstrate fluid responsive state with persistent borderline hypotension. Hypotension likely due to hypovolemia/dehydration. He received fluid boluses and blood pressure improved. He had mild hypokalemia at the outside facility that normalized. Heparin drip started. Cardiology was consulted and patient underwent LHC showing right coronary dominant circulation with no evidence of coronary disease. He had mild global left ventricular systolic dysfunction with ejection fraction 40-45% and LV EDP of 22. Raymond he had a Type II VT from infectious process. Echo is pending. Medical management was recommended but patient wished to hold off on starting treatment until he spoke with his doctor. Lipid panel noted. He also was refusing the Lipitor. The patient was having diarrhea. CT scan showing pancolitis. Possibly acute onset infectious colitis but was having mild intermittent bowel symptoms prior. No hx of hematochezia. He was started on empiric antibiotic therapy with Zosyn. Guaiac positive stools but not unexpected given the colitis and on Heparin drip but no massive acute blood loss. CDiff toxin negative. Campylobacter EIA was positive. He did well. His diarrhea improved but since he was having myocarditis and fevers, opted to treat with Azithromycin. QTc okay. He overall did well and was able to be discharged home on 03/26/24. Status at Discharge Cognitive/behavioral status at discharge: stable Time Spent with Patient Time attestation: Total time spent providing and/or coordinating discharge services: 35 minutes Time spent: Greater than 30 minutes Exam Narrative: AF 98.5 115/77 80 26 97% ra Gen - NARD Chest - CTA bilaterally, nml RR CV - RRR S1/S2. Tele showing brief run of ATach Abd - Soft, NT/ND, +BS Ext - No pedal edema. Psych - Nml mood and affect Skin - Warm and dry DS: Data Data Completed and Pending Labs on day of discharge: Labs from last 24 hours 03/26/24 03/26/24 03/25/24 06:45 00:59 18:25 WBC 3.7 L RBC 3.62 L Hgb 11.0 L 9.9 L 11.8 L Hct 32.9 L 29.7 L 37.3 L MCV 90.9 MCH 30.4 MCHC 33.4 RDW 12.9 Plt Count 162 MPV 10.4 Immature Gran % (Auto) 0.3 Neut % (Auto) 48.3 Lymph % (Auto) 34.2 [place] % (Auto) 15.5 H Eos % (Auto) 1.4 Baso % (Auto) 0.3 Lymph # (Auto) 1.26 [place] # (Auto) 0.6 Eos # (Auto) 0.1 Baso # (Auto) 0.0 Abs Immat Gran (auto) 0.01 Absolute Neuts (auto) 1.8 Absolute Nucleated RBC 0.000 Nucleated RBC % 0.0 APTT 84.6 H 124.0 H 70.1 H Sodium 140 Potassium 3.4 Chloride 110 H Carbon Dioxide 22 Anion Gap 8 BUN 5 L D Creatinine 1.10 Estim Creat Clear Calc 89 Estimated GFR > 60 Glucose 110 Calcium 8.2 L Total Bi
[2024-03-29 13:49] LABS: ANCA Screen Negative (Negative)
--- NOTE | 2024-03-30 09:09 | PC.NURSE ---
Stool cx and Crytospordium are both negative.Dr. Mg pineda.
[2024-03-30 20:14] LABS: S cerevisiae Ab (IgA) 3.5 U (<=20.0)
[2024-03-30 20:17] LABS: S cerevisiae Ab (IgG) 9.5 U (<=20.0)
[2024-03-31 11:29] LABS: Myeloperoxidase Ab <1.0 AI (<1.0); Proteinase-3 Ab <1.0 AI (<1.0)
--- NOTE | 2024-04-02 13:18 | PC.NURSE ---
Blood cx are negative. Dr. Mg pineda.
--- NOTE | 2024-04-04 11:57 | PC.NURSE ---
O&P are both negative. IBD panel is negative. Dr. Mg pineda.
== END 2024-03-26 18:10 | disposition home or self-care (01) | DRG 391 ==
PROVIDERS: Specialist; Admitting Provider Internal Medicine; Visit Provider Internal Medicine
PROC: 4A023N7 Measurement of Cardiac Sampling and Pressure, Left Heart, Percutaneous Approach (ICD-10-PCS; CPT 93452; principal; 2024-03-26 09:00)
PROC: 4A023N7 Measurement of Cardiac Sampling and Pressure, Left Heart, Percutaneous Approach (ICD-10-PCS; 2024-03-26 09:00)
DX: A09 Infectious gastroenteritis and colitis, unspecified (principal); I21.A1 Myocardial infarction type 2; I51.4 Myocarditis, unspecified; E86.1 Hypovolemia; E78.5 Hyperlipidemia, unspecified; E87.6 Hypokalemia; E86.0 Dehydration; Z20.822 Contact with and (suspected) exposure to COVID-19
CPT/HCPCS: 36415; 80053; 80061; 82274; 84443; 84484; 85014; 85018; 85025; 85610; 85730; 86036; 86671; 87040; 87045; 87177; 87209; 87269; 87272; 87427; 87449; 87493; 87637; 93005; 93306; 93458; A9270; C1760; C1887; C1894; G0269; J1644; J2250; J2543; J3010; J3480; J7030; J7040